=== PATIENT | female | born 1935 | race Caucasian/White ===

== ENCOUNTER 2016-08-11 21:12 | Inpatient (IN) | payer MEDICARE, BC ==
[2016-08-11 21:41] LABS: Hematocrit 36 % (35-47); Mean Corpuscular HGB Conc 33 g/dl (31-36); Mean Corpuscular Hemoglobin 30 pg (27-31); Mean Corpuscular Volume 90 fL (80-97); Mean Platelet Volume 7 um3 (7.4-10.4); Red Blood Count 4.01 10^6/ul (4.0-5.4); Red Cell Distribution Width 14 % (10.5-15); White Blood Count 6.9 10^3/ul (3.5-10.8)
[2016-08-11 21:58] LABS: Albumin 3.7 g/dL (3.2-5.2); BUN/Creatinine Ratio 23.8 (8-20); Calcium 8.6 mg/dL (8.6-10.3); EGFR African American 117.2 (>60); EGFR Non-African American 91.2 (>60); Globulin 2.6 g/dL (2-4); Magnesium 1.9 mg/dL (1.9-2.7); Potassium 3.8 mmol/L (3.5-5.0); Total Bilirubin 0.4 mg/dL (0.2-1.0); Total Protein 6.3 g/dL (6.4-8.9)
--- NOTE | 2016-08-11 22:00 | RAD ---
INDICATION: Chest pain COMPARISON: April 01, 2010 TECHNIQUE: PA and lateral dual-energy views were obtained. FINDINGS: Bones/Soft Tissues: There are no acute bony findings. Cardiomediastinal: The cardiomediastinal silhouette is normal. Lungs: There are no infiltrates. There is interstitial edema. Pleura: There are no pleural effusions. Other: None IMPRESSION: INTERSTITIAL EDEMA
[2016-08-11 22:11] LABS: Troponin I 0.63 ng/mL (<0.04)
--- NOTE | 2016-08-11 22:28 | ED ---
crystal Magallon Timothy, scribed for Grzegorz Bess MD on 08/11/16 at 2128 . HPI Chest Pain - HPI Summary HPI Summary: Maria Del Carmen Kuhn is a 80 yo female presenting to [facility] with intermittent chest pressure for the past few months, most recently at 2000 tonight. She presents to [facility] today because her Sx have not resolved spontaneously Her daughter is present in room. She states that she has had similar Sx in the past which resolve spontaneously. She was administered 2 NTG and ASA per EMS, which resolved her pressure. 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 Her MHx includes HTN, colorectal CA, chemotherapy, radiation therapy. - History of Current Complaint Time Seen by Provider: 08/11/16 21:13 Hx Obtained From: Patient Onset/Duration: Started Hours Ago, Still Present Time of Onset: 20:00 Timing: Constant Initial Severity: Moderate Current Severity: Moderate Pain Intensity: 0 Pain Scale Used: 0-10 Numeric Chest Pain Location: Diffuse Chest Pain Radiates: No Character: Pressure/Squeezing Alleviating Factor(s): NTG 123, OTC Meds - ASA Associated Signs and Symptoms: Positive: Chest Pain - pressure - Allergy/Home Medications Allergies/Adverse Reactions: Allergies Allergy/AdvReac Type Severity Reaction Status Date / Time Amoxicillin Allergy Unknown Verified 04/13/16 13:08 Reaction Details Ciprofloxacin [From Cipro] Allergy Unknown Verified 04/13/16 13:08 Reaction Details PMH/Surg Hx/FS Hx/Imm Hx Endocrine/Hematology History: Denies: Hx Diabetes, Hx Thyroid Disease Cardiovascular History: Reports: Hx Hypertension Denies: Hx Pacemaker/ICD Respiratory History: Denies: Hx Asthma, Hx Chronic Obstructive Pulmonary Disease (COPD) GI History: Denies: Hx Ulcer History: Denies: Hx Dialysis, Hx Renal Disease Sensory History: Denies: Hx Hearing Aid Psychiatric History: Denies: Hx Panic Disorder - Cancer History Cancer Type, Location and Year: colon ca - chemo/radiation Hx Chemotherapy: Yes - HX COLON CA Hx Radiation Therapy: Yes - Surgical History Surgery Procedure, Year, and Place: colon resection r/t ca,APPY Infectious Disease History: No Infectious Disease History: Denies: Hx Hepatitis, Hx Human Immunodeficiency Virus (HIV), History Other Infectious Disease, Traveled Outside the [place] in Last 30 Days - Family History Known Family History: Positive: Cardiac Disease, Other - breast CA Negative: Diabetes - Social History Alcohol Use: Rare Substance Use Type: Reports: None Smoking Status (MU): Never Smoked Tobacco Review of Systems Constitutional: Negative Eyes: Negative ENT: Negative Positive: Chest Pain - pressure Respiratory: Negative Gastrointestinal: Negative Genitourinary: Negative Musculoskeletal: Negative Skin: Negative Neurological: Negative Psychological: Normal All Other Systems Reviewed And Are Negative: Yes Physical Exam Triage Information Reviewed: Yes Vital Signs On Initial Exam: Initial Vitals Temp Pulse Resp BP Pulse Ox 98.3 F 67 18 167/87 95 08/11/16 21:18 08/11/16 21:18 08/11/16 21:18 08/11/16 21:18 08/11/16 21:18 Vital Signs Reviewed: Yes Appearance: Positive: Well-Appearing, No Pain Distress Skin: Positive: Warm Head/Face: Positive: Normal Head/Face Inspection Eyes: Positive: HECTOR ENT: Positive: Hearing grossly normal Neck: Positive: Supple Respiratory/Lung Sounds: Positive: Clear to Auscultation, Breath Sounds Present Cardiovascular: Positive: RRR Abdomen Description: Positive: Nontender, Soft Bowel Sounds: Positive: Present Musculoskeletal: Positive: Strength/ROM Intact Neurological: Positive: Alert, Oriented to Person Place, Time Psychiatric: Positive: Affect/Mood Appropriate Diagnostics - Vital Signs Vital Signs Temp Pulse Resp BP Pulse Ox 08/11/16 21:18 98.3 F 67 18 167/87 95 - Laboratory Lab Results: Lab Results 08/11/16 08/11/16 08/11/16 Range/Units 21:34 21:34 21:34 WBC 6.9 (3.5-10.8) 10^3/ul RBC 4.01 (4.0-5.4) 10^6/ul Hgb 12.0 (12.0-16.0) g/dl Hct 36 (35-47) % MCV 90 (80-97) fL MCH 30 (27-31) pg MCHC 33 (31-36) g/dl RDW 14 (10.5-15) % Plt Count 233 (150-450) 10^3/ul MPV 7 L (7.4-10.4) um3 Neut % (Auto) 62.3 (38-83) % Lymph % (Auto) 28.3 (25-47) % [place] % (Auto) 6.3 (1-9) % Eos % (Auto) 1.9 (0-6) % Baso % (Auto) 1.2 (0-2) % Absolute Neuts (auto) 4.3 (1.5-7.7) 10^3/ul Absolute Lymphs (auto) 1.9 (1.0-4.8) 10^3/ul Absolute Monos (auto) 0.4 (0-0.8) 10^3/ul Absolute Eos (auto) 0.1 (0-0.6) 10^3/ul Absolute Basos (auto) 0.1 (0-0.2) 10^3/ul Absolute Nucleated RBC 0 10^3/ul Nucleated RBC % 0 INR (Anticoag Therapy) 0.95 (0.89-1.11) Sodium 133 (133-145) mmol/L Potassium 3.8 (3.5-5.0) mmol/L Chloride 103 (101-111) mmol/L Carbon Dioxide 23 (22-32) mmol/L Anion Gap 7 (2-11) mmol/L BUN 15 (6-24) mg/dL Creatinine 0.63 (0.51-0.95) mg/dL Est GFR ( Amer) 117.2 (>60) Est GFR (Non-Af Amer) 91.2 (>60) BUN/Creatinine Ratio 23.8 H (8-20) Glucose 148 H (70-100) mg/dL Lactic Acid (0.5-2.0) mmol/L Calcium 8.6 (8.6-10.3) mg/dL Magnesium 1.9 (1.9-2.7) mg/dL Total Bilirubin 0.40 (0.2-1.0) mg/dL AST 22 (13-39) U/L ALT 13 (7-52) U/L Alkaline Phosphatase 78 (34-104) U/L Troponin I 0.63 H* (<0.04) ng/mL Total Protein 6.3 L (6.4-8.9) g/dL Albumin 3.7 (3.2-5.2) g/dL Globulin 2.6 (2-4) g/dL Albumin/Globulin Ratio 1.4 (1-3) 05/30/17 Range/Units 21:34 WBC (3.5-10.8) 10^3/ul RBC (4.0-5.4) 10^6/ul Hgb (12.0-16.0) g/dl Hct (35-47) % MCV (80-97) fL MCH (27-31) pg MCHC (31-36) g/dl RDW (10.5-15) % Plt Count (150-450) 10^3/ul MPV (7.4-10.4) um3 Neut % (Auto) (38-83) % Lymph % (Auto) (25-47) % [place] % (Auto) (1-9) % Eos % (Auto) (0-6) % Baso % (Auto) (0-2) % Absolute Neuts (auto) (1.5-7.7) 10^3/ul Absolute Lymphs (auto) (1.0-4.8) 10^3/ul Absolute Monos (auto) (0-0.8) 10^3/ul Absolute Eos (auto) (0-0.6) 10^3/ul Absolute Basos (auto) (0-0.2) 10^3/ul Absolute Nucleated RBC 10^3/ul Nucleated RBC % INR (Anticoag Therapy) (0.89-1.11) Sodium (133-145) mmol/L Potassium (3.5-5.0) mmol/L Chloride (101-111) mmol/L Carbon Dioxide (22-32) mmol/L Anion Gap (2-11) mmol/L BUN (6-24) mg/dL Creatinine (0.51-0.95) mg/dL Est GFR ( Amer) (>60) Est GFR (Non-Af Amer) (>60) BUN/Creatinine Ratio (8-20) Glucose (70-100) mg/dL Lactic Acid 1.6 (0.5-2.0) mmol/L Calcium (8.6-10.3) mg/dL Magnesium (1.9-2.7) mg/dL Total Bilirubin (0.2-1.0) mg/dL AST (13-39) U/L ALT (7-52) U/L Alkaline Phosphatase (34-104) U/L Troponin I (<0.04) ng/mL Total Protein (6.4-8.9) g/dL Albumin (3.2-5.2) g/dL Globulin (2-4) g/dL Albumin/Globulin Ratio (1-3) Result Diagrams: 08/11/16 21:34 08/11/16 21:34 Lab Statement: Any lab studies that have been ordered have been reviewed, and results considered in the medical decision making process. - Radiology CXR Xray Interpretation: Positive (See Comments) - IMPRESSION: INTERSTITIAL EDEMA Radiology Interpretation Completed By: Radiologist - EKG 2116 Cardiac Rate: NL - 64 BPM EKG Interpretation: NSR @ 64 BPM, nonspecific ST abnormalities Chest Pain Course/Dx - Course Assessment/Plan: Maria Del Carmen Kuhn is a 80 yo female [facility] pressure since 1999 tonight, similar to Sx she has had intermittently for the past few months except it has not resolved spontaneously. Her EKG suggests NSR with nonspecific ST abnormalities. Her CXR suggests interstitial edema. After clinical examination and review of her lab and imaging studies, as well as discussion with Dr. Slade, she will be admitted to [facility] for further obsrevation and treatment. - Diagnoses Provider Diagnoses: NSTEMI (non-ST elevated myocardial infarction) - Provider Notifications Discussed Care Of Patient With: Arya Berg - Accepted Pt for admission Time Discussed With Above Provider: 22:12 Instructed by Provider To: Admit As Inpatient - Critical Care Time Critical Care Time: 30-74 min Discharge - Discharge Plan Condition: Guarded Disposition: ADMITTED TO [facility] Discharge Disposition Comment: admission for further observation, evaluation, and treatment The documentation as recorded by the crystal uribe Timothy accurately reflects the service I personally performed and the decisions made by , Grzegorz Bess MD.
[2016-08-11] MEDS ORDERED: Heparin DRIP 25,000 UNITS(*) 25,000 UNITS/500 ML BAG IVPB SCH ×2 (22:30→23:30)
[2016-08-11] MEDS ORDERED: Heparin VIAL(*) 5000 UNITS/ML VIAL (FIVE THOUSAND) IV SCH (23:00)
[2016-08-11] MEDS ORDERED: Morphine INJ* 2 MG/ML 1 ML SYRINGE IV PRN (23:30)
[2016-08-11] MEDS ORDERED: LORazepam INJ* 2 MG/ML 1 ML VIAL IV PRN (23:30)
[2016-08-11] MEDS ORDERED: Acetaminophen TAB* 325 MG PO PRN (23:30)
[2016-08-11] MEDS ORDERED: Ondansetron INJ* 2 MG/ML VIAL IV PRN (23:30)
[2016-08-11] MEDS ORDERED: CMCS: Melatonin (NF) 3 MG TAB PO PRN (23:30)
[2016-08-11] MEDS ORDERED: traMADol TAB* 50 MG PO PRN (23:30)
[2016-08-11] MEDS ORDERED: NS 0.9% 1000 ML* 1,000 ML IV SCH (23:30)
[2016-08-11] MEDS ORDERED: Heparin VIAL(*) 5000 UNITS/ML VIAL (FIVE THOUSAND) IV PRN (23:48)
[2016-08-12] MEDS ORDERED: Nitroglycerin 2% OINT* 1 GM PAK TOPICAL ONE (00:40)
[2016-08-12 01:09] LABS: Troponin I 2.84 ng/mL (<0.04)
--- NOTE | 2016-08-12 01:31 | HP ---
H&P (Free Text) History and Physical: PCP: Harlan Turcios MD Date/Time of Evaluation: 08/11/2016 2725 CC: chest pain HPI: Mrs Kuhn is a 80YO female HX colon CA & HTN who has been having increased frequency of exertional chest pressure radiating down the L arm without SOB, N/V , sweats, palpitations, or light-headedness. She has seen her PCP and was arranged to perform a stress test a few days ago, but it was cancelled at the test 2nd uncontrolled HTN. Today she experienced the sudden onset of non- exertional chest pressure radiating dysesthesia into the L arm again without other associations. However, in the past this has always resolved quickly with rest, today it continued prompting her to call EMS and present for evaluation which revealed an NSTEMI troponin of 0.6 & ECG showing NSR rate 64 with non- diagnostic ST elevation in III only and ST depressions in V2-6, I, & II. She had taken an 81mg aspirin per her routine today and was given an additional 243mg via EMS. She has taken her metoprolol 25mg PO this evening. Heparin GTT initiated by Shannon Bess MD ED. Will admit to ICU for close monitoring, cardiology consult in AM. PMedHx colon CA s/p partial colectomy, chemo- & radioTX HTN Ambulatory Orders Metoprolol Tartrate 25 mg PO BID 12/22/13 Multiple Vitamin [Multivitamins] 1 cap PO DAILY 12/25/14 Aspirin [Aspirin Adult Low Dose 81 MG] 40 mg PO DAILY 04/08/15 Tramadol HCl [Ultram] 50 mg PO Q6HR PRN #15 tab 04/08/15 Magnesium 500 mg DAILY 08/12/16 Allergies Amoxicillin Allergy (Verified 04/13/16 13:08) Unknown Reaction Details Ciprofloxacin [From Cipro] Allergy (Verified 04/13/16 13:08) Unknown Reaction Details PSurgHx partial colectomy for colon CA SocHx: no tobacco, alcohol, or recreational drugs; originally from [place]; lives alone; avid swimmer, formerly competed in [employer]; increased stress 2nd her brother, sister, [id number], & [id number] all passing in the last 6months; full code status FamHx: Brother passed of CAD & Sister passed of suspected CVA recently. ROS: as above, otherwise reviewed and all were negative Constitutional: NAD, normally developed, well-nourished elderly white female vitals: Vital Signs Temp 36.6 C 08/12/16 00:06 Pulse 61 08/12/16 00:30 Resp 17 08/12/16 00:30 BP 99/86 08/12/16 00:30 Pulse Ox 95 08/12/16 00:30 Intake & Output 08/11/16 08/11/16 08/12/16 11:59 23:59 11:59 Weight 60.781 kg 60.9 kg HEENM: atraumatic; sclera/conjunctiva: non-icteric/clear; hearing: clinically intact; oropharynx: clear, mucosa moist Neck: soft tissue: non-tender; thyroid: normal Pulmonary: clear to auscultation bilaterally, good aeration, no accessory muscle use CV: RR/RR, normal S1S2, no carotid bruit, no jugular venous distention, 2+ B DP/ PT, no edema Abdominal: soft, non-distended, non-tender, no rebound/guarding/rigidity, normoactive bowel sounds, no hepatosplenomegaly or masses, no costovertebral angle tenderness Musculoskeletal: general: grossly intact; gait: stable Integumental: normal appearance and texture of exposed skin Psychiatric orientation: AA&O to PPS affect: calm mood: pleasant eye contact: good content: reliable responses: timely insight: good Testing: Lab Results 08/11/16 08/11/16 08/11/16 Range/Units 21:34 21:34 21:34 WBC 6.9 (3.5-10.8) 10^3/ul RBC 4.01 (4.0-5.4) 10^6/ul Hgb 12.0 (12.0-16.0) g/dl Hct 36 (35-47) % MCV 90 (80-97) fL MCH 30 (27-31) pg MCHC 33 (31-36) g/dl RDW 14 (10.5-15) % Plt Count 233 (150-450) 10^3/ul MPV 7 L (7.4-10.4) um3 Neut % (Auto) 62.3 (38-83) % Lymph % (Auto) 28.3 (25-47) % [place] % (Auto) 6.3 (1-9) % Eos % (Auto) 1.9 (0-6) % Baso % (Auto) 1.2 (0-2) % Absolute Neuts (auto) 4.3 (1.5-7.7) 10^3/ul Absolute Lymphs (auto) 1.9 (1.0-4.8) 10^3/ul Absolute Monos (auto) 0.4 (0-0.8) 10^3/ul Absolute Eos (auto) 0.1 (0-0.6) 10^3/ul Absolute Basos (auto) 0.1 (0-0.2) 10^3/ul Absolute Nucleated RBC 0 10^3/ul Nucleated RBC % 0 INR (Anticoag Therapy) 0.95 (0.89-1.11) APTT (26.0-36.3) seconds Sodium 133 (133-145) mmol/L Potassium 3.8 (3.5-5.0) mmol/L Chloride 103 (101-111) mmol/L Carbon Dioxide 23 (22-32) mmol/L Anion Gap 7 (2-11) mmol/L BUN 15 (6-24) mg/dL Creatinine 0.63 (0.51-0.95) mg/dL Est GFR ( Amer) 117.2 (>60) Est GFR (Non-Af Amer) 91.2 (>60) BUN/Creatinine Ratio 23.8 H (8-20) Glucose 148 H (70-100) mg/dL Lactic Acid (0.5-2.0) mmol/L Calcium 8.6 (8.6-10.3) mg/dL Magnesium 1.9 (1.9-2.7) mg/dL Total Bilirubin 0.40 (0.2-1.0) mg/dL AST 22 (13-39) U/L ALT 13 (7-52) U/L Alkaline Phosphatase 78 (34-104) U/L Troponin I 0.63 H* (<0.04) ng/mL Total Protein 6.3 L (6.4-8.9) g/dL Albumin 3.7 (3.2-5.2) g/dL Globulin 2.6 (2-4) g/dL Albumin/Globulin Ratio 1.4 (1-3) 08/11/16 08/12/16 08/12/16 Range/Units 21:34 00:26 00:26 WBC (3.5-10.8) 10^3/ul RBC (4.0-5.4) 10^6/ul Hgb (12.0-16.0) g/dl Hct (35-47) % MCV (80-97) fL MCH (27-31) pg MCHC (31-36) g/dl RDW (10.5-15) % Plt Count (150-450) 10^3/ul MPV (7.4-10.4) um3 Neut % (Auto) (38-83) % Lymph % (Auto) (25-47) % [place] % (Auto) (1-9) % Eos % (Auto) (0-6) % Baso % (Auto) (0-2) % Absolute Neuts (auto) (1.5-7.7) 10^3/ul Absolute Lymphs (auto) (1.0-4.8) 10^3/ul Absolute Monos (auto) (0-0.8) 10^3/ul Absolute Eos (auto) (0-0.6) 10^3/ul Absolute Basos (auto) (0-0.2) 10^3/ul Absolute Nucleated RBC 10^3/ul Nucleated RBC % INR (Anticoag Therapy) (0.89-1.11) APTT > 212.0 H* (26.0-36.3) seconds Sodium (133-145) mmol/L Potassium (3.5-5.0) mmol/L Chloride (101-111) mmol/L Carbon Dioxide (22-32) mmol/L Anion Gap (2-11) mmol/L BUN 14 (6-24) mg/dL Creatinine (0.51-0.95) mg/dL Est GFR ( Amer) (>60) Est GFR (Non-Af Amer) (>60) BUN/Creatinine Ratio (8-20) Glucose (70-100) mg/dL Lactic Acid 1.6 (0.5-2.0) mmol/L Calcium (8.6-10.3) mg/dL Magnesium (1.9-2.7) mg/dL Total Bilirubin (0.2-1.0) mg/dL AST (13-39) U/L ALT (7-52) U/L Alkaline Phosphatase (34-104) U/L Troponin I 2.84 H* (<0.04) ng/mL Total Protein (6.4-8.9) g/dL Albumin (3.2-5.2) g/dL Globulin (2-4) g/dL Albumin/Globulin Ratio (1-3) ECG, personally reviewed: NSR rate 64 with non-diagnostic ST elevation in III only and ST depressions in V2-6, I, & II CXR, personally reviewed: IMPRESSION: INTERSTITIAL EDEMA Impression: 80F presenting with NSTEMI DIAGNOSIS & PLAN Primary NSTEMI : aspirin given by ECS : metoprol IR (took evening 25mg dose) : heparin GTT : 1/2" nitropaste : supplemental oxygen : ICU monitoring : telemetry : trend troponin : cardiology consult in AM : supportive care Secondary HTN : review medications once reconciled, monitor HX colon CA : no current evidence of disease Admission Rational: inpatient ICU for NSTEMI in patient at risk of sudden cardiac ; inappropriate for outpatient setting DVTp: heparin GTT Code Status: full HCP: son, Bolivar
[2016-08-12] MEDS ORDERED: Omeprazole CAP* 20 MG PO SCH (06:00)
[2016-08-12] MEDS ORDERED: Nitro Patch/OINT Remove PATCH OFF ONE (07:00)
[2016-08-12] MEDS ORDERED: traMADol TAB* 50 MG PO PRN (07:02)
[2016-08-12] MEDS ORDERED: Metoprolol Tartrate IV* 1 MG/ML 5 ML VIAL ONE (08:40)
[2016-08-12] MEDS ORDERED: nitroGLYCERIN DRIP* 250 ML ONE ×2 (08:41→10:14)
[2016-08-12] MEDS ORDERED: Metoprolol Tartrate IV* 1 MG/ML 5 ML VIAL IV ONE (08:43)
[2016-08-12] MEDS ORDERED: nitroGLYCERIN DRIP* 25,000 MCG in PREMIX* 0 ML IV SCH (08:44)
--- NOTE | 2016-08-12 08:53 | PN ---
Subjective Date of Service: 08/12/16 Interval History: This is a 80 yo female with HTN and h/o colon CA who presented with c/o CP. She was admitted to ICU with evidence of NSTEMI. Patient has been CP overnight. She denies SOB, abd pain, n/v. She states that she otherwise feels well. Patient has been evaluated by Dr Alarcon this am with pending evaluation by Dr Ma for cardiac catheterization. Objective Active Medications: Acetaminophen (Tylenol Tab*) 650 mg PO Q6H PRN PRN Reason: FEVER/PAIN Aspirin (Aspirin Ec Low Dose*) 81 mg PO DAILY RONNELL Docusate Sodium (Colace Cap*) 200 mg PO BID RONNELL Heparin Sodium (Porcine) (Heparin Vial(*)) 0 units IV .BOLUSES PRN PRN Reason: HEPARIN DRIP BOLUSES Heparin Sodium/Dextrose (Heparin Drip 25,000 Units(*)) 25,000 units in 500 mls @ 0 mls/hr IVPB .(INITIAL RATE) RONNELL; Per Protocol PRN Reason: Protocol Nitroglycerin/Dextrose 25,000 (mcg/ IV Solution) 250 mls @ 3 mls/hr IV .( Initial Rate) RONNELL PRN Reason: 5 MCG/MIN Lisinopril (Prinivil Tab*) 5 mg PO DAILY RONNELL Lorazepam (Ativan Inj*) 0.5 mg IV BEDTIME PRN PRN Reason: SLEEP Melatonin (Melatonin (Nf)) 3 mg PO BEDTIME PRN; Protocol PRN Reason: Sleep Metoprolol Tartrate (Lopressor Tab*) 25 mg PO BID [facility] Metoprolol Tartrate (Lopressor Iv*) 5 mg IV ED ONCE ONE Stop: 08/12/16 08:44 Morphine Sulfate (Morphine Inj (Syringe)*) 2 mg IV Q4H PRN PRN Reason: PAIN - MILD Omeprazole (Prilosec Cap*) 20 mg PO DAILY@0600 [facility] Last Admin: 08/12/16 06:11 Dose: 20 mg Ondansetron HCl (Zofran Inj*) 4 mg IV Q6H PRN PRN Reason: NAUSEA Tramadol HCl (Ultram*) 50 mg PO Q6HR PRN PRN Reason: PAIN Vital Signs: Temp Pulse Resp BP Pulse Ox 97.2 F 65 16 164/80 93 08/12/16 07:25 08/12/16 07:00 08/12/16 07:00 08/12/16 07:00 08/12/16 07:00 Oxygen Devices in Use Now: Nasal Cannula Appearance: Well appearing elderly female who is in NAD and accompanied by her daughter. Neck: NL Appearance and Movements; NL JVP Respiratory: Symmetrical Chest Expansion and Respiratory Effort, Clear to Auscultation Cardiovascular: NL Sounds; No Murmurs; No JVD, RRR Abdominal: NL Sounds; No Tenderness; No Distention Extremities: No Edema Skin: No Rash or Ulcers Neurological: Alert and Oriented x 3 Result Diagrams: 08/11/16 21:34 08/12/16 00:26 Additional Lab and Data: Laboratory Tests 08/11/16 08/12/16 08/12/16 21:34 00:26 06:45 Troponin I 0.63 H* 2.84 H* 6.23 H* Microbiology and Other Data: Microbiology 08/12/16 01:00 Nasal Screen MRSA (PCR)(RENETTA) - Final Nasal Mrsa Negative Diagnostic Imaging: CXR - mild interstitial edema EKG - sinus, ST seg depression in septolateral leads, improving with serial EKGs Assess/Plan/Problems-Billing Assessment: This is a 80 yo female with HTN and h/o colon CA who presented with c/o CP, admitted with NSTEMI - Patient Problems (1) NSTEMI (non-ST elevated myocardial infarction) Comment: Patient is now asymptomatic Troponin still rising, but ST depression appears to be resolving on serial EKGs Appreciate cardiology consult Pending cardiac catheterization Cont heparin drip, ASA, metoprolol, statin, add lisinopril (2) HTN (hypertension) Comment: Poorly controlled Cont metoprolol Add lisinopril IV Lopressor and nitro drip per cardiology (3) H/O malignant neoplasm of colon (4) Full code status (5) DVT prophylaxis Comment: Heparin gtt Status and Disposition: Inpatient. Pending cardiac catheterization. Requires continued ICU care
[2016-08-12] MEDS ORDERED: Potassium Chlor TAB* 10 MEQ TAB.ER PO ONE (08:56)
[2016-08-12] MEDS ORDERED: Docusate CAP* 100 MG PO SCH (09:00)
[2016-08-12] MEDS ORDERED: Aspirin EC Low Dose* 81 MG TAB.EC PO SCH ×2 (09:00)
[2016-08-12] MEDS ORDERED: Metoprolol Tartrate TAB* 25 MG PO SCH ×2 (09:00→12:00)
[2016-08-12] MEDS ORDERED: Lisinopril TAB* 5 MG PO SCH (09:00)
[2016-08-12] MEDS ORDERED: Atorvastatin* 40 MG TAB PO SCH (09:00)
[2016-08-12] MEDS ORDERED: Atorvastatin* 80 MG TAB PO SCH (09:39)
[2016-08-12] MEDS ORDERED: NS 0.9% 1000 ML* 1,000 ML IV SCH ×2 (09:45→11:30)
[2016-08-12] MEDS ORDERED: Heparin(*) 1000 UNIT/ML 10 ML VIAL CATH LAB IV ONE (10:13)
[2016-08-12] MEDS ORDERED: Midazolam* 1 MG/ML 5 ML VIAL (5 MG) ONE (10:13)
[2016-08-12] MEDS ORDERED: fentaNYL* 50 MCG/ML 2 ML VIAL (100 MCG VIAL) ONE (10:13)
[2016-08-12] MEDS ORDERED: VERAPAMIL 2.5 MG/ML 4 ML VIAL ONE (10:14)
[2016-08-12] MEDS ORDERED: Iohexol 350 (CONTRAST) 200 ML MDV IV ONE (10:14)
[2016-08-12] MEDS ORDERED: Heparin 2 UNITS/ML IVPREMIX* 0 ML IV ONE (10:14)
[2016-08-12] MEDS ORDERED: Lidocaine 1% INJ* 10 MG/ML 30 ML SDV ONE (10:14)
[2016-08-12] MEDS ORDERED: Heparin 2 UNITS/ML IVPREMIX* 2,000 ML IV ONE (11:03)
--- NOTE | 2016-08-12 11:47 | CONS ---
CC: Dr. Turcios, hospitalist CARDIOLOGY CONSULTATION and Transfer summary DATE OF CONSULT: 08/12/16 REASON FOR CONSULTATION: Anginal chest pain, elevated troponins. HISTORY OF PRESENT ILLNESS: Mrs. Kuhn is a 80-year-old woman who is very active and swims daily, who has had a year long history of chest pain that comes and goes and clears with rest. It occurs on the left side of the chest, radiates to the left arm. She had been sent for a stress test, but because her blood pressure was elevated, the stress test was not performed on 07/28/16. Yesterday, the patient swam in the morning, felt well until afterwards, and then developed chest pain that did not clear with rest, so she presented to the emergency room. She had been treated with heparin drip in addition to oral antihypertensives and antianginal medications, but continues to have some discomfort in the low chest and epigastric region. She says now she cannot tell if she is hungry or it is her angina. She no longer has the left arm pain. She denies any diaphoresis, nausea, dyspnea or palpitations. PAST MEDICAL HISTORY: The patient has a past medical history of hypertension, colon cancer, status post partial colectomy, radiation therapy, and chemotherapy in the . CURRENT INPATIENT MEDICATIONS: Includes: 1. Aspirin 81 mg a day. 2. Colace. 3. Heparin drip. 4. Lisinopril 5 mg a day. 5. Ativan p.r.n. 6. Melatonin p.r.n. 7. Lopressor 25 mg b.i.d. 8. Morphine p.r.n. 9. Prilosec 20 mg a day. 10. Ondansetron p.r.n. 11. Ultram p.r.n. ALLERGIES: Include AMOXICILLIN and CIPROFLOXACIN. SOCIAL HISTORY: The patient is a nonsmoker. No history of alcohol use or abuse. She is , originally from [facility], and as mentioned, very active, swimming daily. FAMILY HISTORY: Strongly positive for atherosclerotic heart disease. Her mother of heart disease. She had a sister who had stents and at age 82, and a brother who had stents. He at age 75 and also had a history of colon cancer. REVIEW OF SYSTEMS: Negative for recent fevers, chills, or sweats. Positive for the uncontrolled hypertension as mentioned. She has occasional bowel incontinence due to her partial colectomy. No urinary problems. No orthopnea or PND. All other review of systems was unremarkable. PHYSICAL EXAMINATION: General Appearance: Petite, fatigued-appearing elderly woman, lying flat with one pillow, in no acute distress. Vitals: The patient is 5 feet, weighs 133 pounds, with a BMI of 26. Blood pressure at the time of my exam was 164/80, pulse was 72, temperature 97.2, respiratory rate 16, and oxygen saturation on room air is 93%. HEENT: Pupils are equal and round. Mucous membranes are moist. Neck: Without appreciable increase in JVP. Good carotid pulses and audible bruits. Lungs: Breath sounds clear with good effort. No wheezes, rales, or rhonchi. Coronary: S1 and S2, regular. Free of murmurs or rubs. Abdomen: Flat, active bowel sounds. Soft, nontender. No hepatosplenomegaly appreciated. She has strong symmetrical radial pulses. Strong symmetrical femoral pulses, without bruits, and the lower extremities are free of edema and warm, with good distal pulses. Psychologically, pleasant and cooperative. Neurologically, awake, alert, and oriented to person, place, and time. Cranial nerves II through XII grossly intact on bed exam. Speech is articulate. Comprehension is good. She follows commands well and appears quite nimble in bed. Gait not checked. Skin: Warm, dry, and no cyanosis or rashes. DIAGNOSTIC STUDIES/LAB DATA: Sodium 133, potassium 3.8, glucose 148, BUN 15, creatinine 0.63. Troponin #1 is 0.63, troponin #2 is 2.84, troponin #3 is 6.23. She has a lipid panel from 05/01/15 showing total cholesterol 186, LDL cholesterol 89, HDL cholesterol 59, and triglycerides 189. From 07/27/16, her vitamin B12 was low at 118. Carcinoembryonic antigen was mildly elevated at 6.2. INR was 121 on heparin drip. White count 6.9, hemoglobin 12, hematocrit 36, platelets 233. Magnesium 1.9 and ALT is 13. Chest x-ray on arrival showed some interstitial edema. Out patient ECHO two weeks ago showed normal left ventricular wall motion and systolic function. ECG on arrival, 08/11/16, at 2100 showed normal sinus rhythm, 64 beats a minute , with [address] elevation in lead III, ST depression in lead II, aVF, and [address] depression across the precordial leads V2 through V5. I and aVL also have ST depression. Repeat ECG this morning at 6:18 is improved, but she still has ST elevation leads III, aVF, inverted T- waves and mild ST depression across the precordial leads. When this is compared with her baseline ECG of 09/27, the ST elevation on lead III is old, but the precordial changes are new. IMPRESSION: In summary, Maria Del Carmen Kuhn is a 80-year-old woman with anginal pain, new EKG changes, and troponins that are elevating. She has atherosclerotic risk of hypertension, a family history that is strong for coronary artery disease, and a year ago she had mild elevation in triglycerides and she has had hyperglycemia going back as far as 2013. I feel the patient should proceed to cardiac catheterization and the risks and benefits were discussed with the patient and her daughter and they are amenable. In addition we will be more aggressive with medical management as she is having ongoing pain. I am going to increase her beta- gerald, start a nitroglycerin drip, start her on a statin . I will replete her potassium. Dr. Ma, the button decorating machine operator, has been contacted and I will defer on Plavix versus Brilinta at this time. Additional recommendations will be made pending response to more aggressive medical management in addition to the results of her cardiac catheterization. With her elevated CEA level and history of colon cancer, cancer could also be a prothrombotic factor as well. ADDENDUM: Cardiac catheterization revealed critical left main disease and severe stenosis of the RCA. Bypass surgery is recommended and the patient has been accepted in transfer to [facility] (Dr. Antonio Fuchs). The patient was hemodynamically stable during the catheterization and she is chest pain free on her current medical regimen. Medications on discharge are the list above and atorvastatin 80 mg and NTG gtt 15 mcg/minute. [id number]/[facility] #: [id number] [facility]
[2016-08-12 12:09] VITALS: BP 139/60
--- NOTE | 2016-08-12 13:33 | ECHO ---
Patient: ADELAIDE COX V [facility] Rec#: [id number] : 1935 Date: 08/12/2016 Age: 80y Height: 152.4 cm / 60.0 in Weight: 60.33 kg / 133.0 lbs Sex: F BSA: 1.57 Room#: [id number] Admit Date#: 08/12/2016 Type: Inpatient Referring: Ingrid Alarcon MD Reading: Ingrid Alarcon MD Residential Energy Auditor: Ledy Terrell [facility] Transthoracic Echocardiogram Indication: CP //Non Q wave NE BP: 164/80 HR: 55 Rhythm: Bradycardia Findings History: Colon cancer in the past,with chemo and radiation,HTN. Technical Comments: The study quality is fair. Completed at 1244. Left Ventricle: The left ventricular chamber size is normal. There is a focal wall motion abnormality present.[place] and antrior wall severe hypokinesis and akinesis. There is moderate to severely decreased left ventricular systolic function. The estimated ejection fraction is 30-35%. Abnormal left ventricular diastolic function is observed. Left Atrium: The left atrial chamber size is normal. Right Ventricle: The right ventricular cavity size is normal. The right ventricular global systolic function is low normal. Right Atrium: The right atrial cavity size is normal. Aortic Valve: The aortic valve is trileaflet. There is no evidence of aortic valve thickening. There is no evidence of aortic regurgitation. There is no evidence of aortic stenosis. Mitral Valve: The mitral valve leaflets are mildly thickened. There is trace to mild mitral regurgitation. There is no evidence of mitral stenosis. Tricuspid Valve: The tricuspid valve leaflets are normal. There is trace tricuspid regurgitation. Unable to estimate the right ventricular systolic pressure. There is no tricuspid stenosis. Pulmonic Valve: The pulmonic valve structure is not well visualized. Pericardium: The pericardium appears normal. Aorta: There is no dilatation of the ascending aorta. There is no dilatation of the aortic arch. There is no dilation of the aortic root. Venous: The inferior vena cava appears normal in size. There is a greater than 50% respiratory change in the inferior vena cava dimension. Conclusions [place] and antrior wall severe hypokinesis and akinesis. The estimated ejection fraction is 30-35%. Abnormal left ventricular diastolic function is observed. The right ventricular global systolic function is in the low range of normal. There is trace to mild mitral regurgitation. There is trace tricuspid regurgitation. Compared with prior echo of 07/28/16, the wall motion abnormalities and depressed ejection fraction are newly described. Measurements Name Value Normal Range RVIDd (AP) 2D 2.6 cm (0.9 - 2.6) RVDdMajor (2D) 3.3 cm (2.2 - 4.4) RAd ISD 4CH 4 cm (3.4 - 4.9) RA (A4C)W 3.4 cm (2.9 - 4.6) IVSd (2D) 0.7 cm (0.6 - 1) LVPWd (2D) 0.8 cm (0.6 - 1) LVIDd (2D) 3.6 cm (3.6 - 5.4) LVIDs (2D) 3.1 cm - LV FS (2D) 14 % (25 - 45) Aortic Annulus 2.2 cm (1.4 - 2.6) Ao root diameter (2D) 3.3 cm (2.1 - 3.5) Ascending Ao 3.4 cm (2.1 - 3.4) Aortic arch 1.8 cm (1.8 - 3.4) Descending Ao 0.5 cm - LA dimension (AP) 2D 2.8 cm (2.3 - 3.8) LAd ISD 4CH 6.2 cm (2.9 - 5.3) LA ISD 4CH W 4.3 cm (2.5 - 4.5) Name Value Normal Range LA ESV SP 4CH (A/L) 67 ml - LA ESV SP 2CH (A/L) 54 ml - LA ESV BP (A/L) 61 ml - LA ESV BP (A/L) index 39.08 ml/m2 - LA ESV SP 4CH (MOD) 65 ml - LA ESV SP 2CH (MOD) 51 ml - Name Value Normal Range MV E-wave Vmax 0.9 m/sec - MV deceleration time 269 msec - MV A-wave Vmax 1.3 m/sec - MV E:A ratio 0.66 ratio - LV septal e' Vmax 0.06 m/sec - LV lateral e' Vmax 0.08 m/sec - LV E:e' septal ratio 15 ratio - LV E:e' lateral ratio 11.25 ratio - Name Value Normal Range AV Vmax 1.6 m/sec - AV VTI 39.1 cm - AV peak gradient 5.88 mmHg - AV mean gradient 4.38 mmHg - LVOT Vmax 1 m/sec - LVOT VTI 25.6 cm - LVOT peak gradient 3.91 mmHg - LVOT mean gradient 1.84 mmHg - Name Value Normal Range TR Vmax 2.4 m/sec - TR peak gradient 23 mmHg - RAP 3 mmHg - RVSP 26 mmHg - IVC diameter 1.5 cm -
--- NOTE | 2016-08-12 23:18 | TRS ---
TRANSFER SUMMARY: DATE OF ADMISSION: 08/11/16 DATE OF TRANSFER: 08/12/16 FACILITY TO BE TRANSFERRED TO: [facility]. ACCEPTING PHYSICIAN: Dr. Fuchs. DISCHARGING PROVIDER: MADISON Douglas SUPERVISING PHYSICIAN: Ephraim Griffiths MD * (DICTATED BY MADISON DOUGLAS) CONSULTING INSURANCE INSTRUCTOR: Ingrid Alarcon MD COLLAR RUNNER: Lorrie Ma MD PRIMARY TRANSFER DIAGNOSES: 1. Non-ST elevation myocardial infarction with severe left main disease and right coronary stenosis, requiring coronary artery bypass graft procedure. 2. Hypertension - currently controlled with nitroglycerin drip, oral metoprolol , and lisinopril. SECONDARY DISCHARGE DIAGNOSIS: Remote history of colon cancer. TRANSFER MEDICATIONS: 1. Aspirin 81 mg p.o. daily. 2. Lipitor 80 mg p.o. daily. 3. Docusate 200 mg p.o. twice daily. 4. Heparin drip, currently at 800 units per hour. 5. Lisinopril 5 mg p.o. daily. 6. Melatonin 3 mg p.o. at bedtime. 7. Metoprolol tartrate 25 mg p.o. q.8 hours. 8. Morphine 2 mg IV q.1 hour as needed for chest pain. 9. Normal saline at 100 mL per hour. 10. Nitro drip, currently at 15 mcg per minute. 11. Omeprazole 20 mg p.o. daily. 12. Zofran 4 mg IV q.6 hours as needed for nausea. 13. Tramadol 50 mg p.o. q.6 hours as needed for pain. HOSPITAL IMAGIN. Chest x-ray shows some mild interstitial edema. 2. EKG shows sinus rhythm with ST-segment depressions in precordial leads, which appear new compared to old EKG, and serial EKG's ST depressions appear improving. 3. Cardiac catheterization demonstrates severe left main disease and right coronary stenosis. HOSPITAL COURSE: This is a 80-year-old female with a remote history of colon cancer and hypertension, who presented to the emergency department with complaints of chest pain. The patient has had symptoms of exertional chest pain for nearly a year and exercises daily. Her chest pain always resolves at rest. She was scheduled for a stress test by her primary care provider, but her blood pressure was uncontrolled at the time of stress testing and test was not completed. Yesterday, the patient exercised as usual participating in swimming and physical therapy. She did not experience chest pain during activity, but following activity, developed chest pain that did not resolve with rest and she subsequently presented to the emergency department. Her initial troponin was 0.63, which flako as high as 6.23 on serial monitoring, and her initial EKG demonstrated sinus rhythm, but new ST depressions in precordial leads. The patient was subsequently admitted to the ICU for a non-ST elevation AR and started on a heparin drip. She remained chest pain free overnight, but was complaining of some epigastric discomfort, but thought this was mostly due to being hungry. Serial EKG demonstrates partial resolution of her ST depression, but the patient remained hypertensive. She was started on a nitroglycerin drip as well as additional oral metoprolol and lisinopril with good effect. The patient underwent cardiac catheterization with Dr. Lorrie Ma, who discovered severe left main disease as well as right coronary stenosis and for this reason, recommended transfer for coronary artery bypass grafting at [facility]. DISPOSITION AND FOLLOWUP PLAN: The patient is being discharged to [facility] with Dr. Fuchs as accepting cardiac surgeon. The patient is chest pain free at the time of transfer and otherwise stable. The patient will likely undergo coronary artery bypass grafting either later this afternoon or tomorrow morning. She will require a close cardiology followup and primary care followup after discharge from [facility]. MADISON DOUGLAS CC: Primary care provider, Braxton Turcios MD* [id number]/[facility] #: [id number] DONNA
--- NOTE | 2016-08-14 23:26 | CATH ---
CC: Dr. Lorrie Ma; Dr. Turcios; Dr. Alarcon CATHETERIZATION REPORT: DATE OF PROCEDURE: 08/12/16 PRIMARY CARE PHYSICIAN: Dr. Turcios. OFFICE ADMINISTRATION: Dr. Alarcon. PROCEDURES: Right radial artery access, bilateral selective coronary cineangiography, left heart ca theterization. HISTORY: A 80-year-old woman with non-ST elevation infarct. PROCEDURE ACCESS: Right radial artery, sheath 6F slender. MEDICATIONS: 1. Subcu lidocaine. 2. IV Versed. 3. IV fentanyl. 4. Heparin 3000 units. 5. Verapamil 3 mg. 6. Nitroglycerin 300 mcg IA. DIAGNOSTIC CATHETERS: 6FL 3.5, 6FR 4, which was also used to measure LV pressure. LV gram was not p erformed. HEMODYNAMICS: Initial BP 154/90, LV 122/8-17, no aortic valve gradient on pullback. ANGIOGRAPHY: Injection of the right subclavian showed it to be tortuous. Left main: The left main is very short. It has a distal 80% to 90% stenosis involving the origin of the LAD and circumflex. LAD: The LAD is moderate, extends to the apex, it has JACOBY 2 flow. The LAD has a proximal 30% sten osis, supplies a small to moderate diagonal, ends past the apex. Circumflex: The circumflex is not dominant. It is moderate, has a moderate posterolateral and ends with a small distal posterolateral. The left coronary system is calcified. RCA: The RCA is moderate, small to moderate, dominant, has calcification, has a 50% stenosis at the acute margin followed by an eccentric 80% stenosis before the crux. The PDA is small. There is a faint conus collateral to the LAD. CONCLUSION: 1. Severe left main with 3-vessel disease. 2. Elevated LVEDP without aortic stenosis. 3. Successful right radial artery access. 4. The patient will be transferred for bypass grafting. [id number]/[facility] #: [id number]
== END 2016-08-12 14:30 | disposition short-term general hospital (02) | DRG 282 ==
LOC: ED 21:12 → ICU 22:44
PROVIDERS: ADMIT Hospitalist; ATTEND Specialist
PROC: 4A023N7 Measurement of Cardiac Sampling and Pressure, Left Heart, Percutaneous Approach (ICD-10-PCS; 2016-08-12)
PROC: 4A023N7 Measurement of Cardiac Sampling and Pressure, Left Heart, Percutaneous Approach (ICD-10-PCS; 2016-08-12)
PROC: B2111ZZ Fluoroscopy of Multiple Coronary Arteries using Low Osmolar Contrast (ICD-10-PCS; 2016-08-12)
PROC: B2111ZZ Fluoroscopy of Multiple Coronary Arteries using Low Osmolar Contrast (ICD-10-PCS; principal; 2016-08-12 10:15)
DX: I21.4 Non-ST elevation (NSTEMI) myocardial infarction (principal); E11.9 Type 2 diabetes mellitus without complications; I25.119 Atherosclerotic heart disease of native coronary artery with unspecified angina pectoris; I10 Essential (primary) hypertension; Z92.21 Personal history of antineoplastic chemotherapy; Z92.3 Personal history of irradiation; Z88.1 Allergy status to other antibiotic agents; Z85.038 Personal history of other malignant neoplasm of large intestine; Z80.3 Family history of malignant neoplasm of breast; Z82.49 Family history of ischemic heart disease and other diseases of the circulatory system; Z79.82 Long term (current) use of aspirin
CPT/HCPCS: 36415; 71020; 80053; 83605; 83735; 84484; 84520; 85025; 85610; 85730; 87641; 93005; 93306; 93458; A9270-GY; C1887; J1644; J2001; J2250; J3010

== ENCOUNTER 2022-03-09 07:23 | Observation (INO) ==
[2022-03-09] MEDS ORDERED: Famotidine IV 10 MG/ML 2 ml VIAL (20 mg) IV SLOW PU ONE (08:15)
[2022-03-09 09:15] LABS: ALT 29 U/L (7-52); Albumin 4.3 g/dL (3.2-5.2); Albumin/Globulin Ratio 1.4 (1-3); Alkaline Phosphatase 96 U/L (35-149); Blood Urea Nitrogen 13 mg/dL (6-24); C Reactive Protein 2.28 mg/L (<8.01); CO2 Carbon Dioxide 23 mmol/L (22-32); Calcium 8.7 mg/dL (8.6-10.3); Chloride 98 mmol/L (101-111); Glucose 156 mg/dL (70-100); Lipase 39 U/L (11.0-82.0); Sodium 137 mmol/L (135-145); Total Protein 7.3 g/dL (6.4-8.9)
[2022-03-09 09:20] LABS: Anion Gap 16 mmol/L (2-11)
[2022-03-09 09:22] LABS: ABS Lymphocytes 1.1 10^3/ul (1.0-4.8); ABS Monocytes 0.4 10^3/ul (0-0.8); Hematocrit 38 % (35-47); Hemoglobin 12.6 g/dL (12.0-16.0); Lymphocyte % 8.5 %; Mean Corpuscular HGB Conc 33 g/dL (31-36); Mean Corpuscular Hemoglobin 27 pg (27-31); Mean Corpuscular Volume 82 fL (80-97); Mean Platelet Volume 6.8 fL (7.4-10.4); Platelet Count 312 10^3/uL (150-450); Red Blood Count 4.63 10^6 /uL (3.70-4.87); Red Cell Distribution Width 15 % (10-15); White Blood Count 12.5 10^3/uL (3.5-10.8)
[2022-03-09] MEDS ORDERED: Iohexol 350 (CONTRAST) 500 ML MDV IV ONE (09:24)
[2022-03-09] MEDS ORDERED: Ondansetron 4 mg VIAL 2 MG/ML 2 ml VIAL IV ONE (10:15)
[2022-03-09] MEDS ORDERED: Lactated Ringers 1000 ml BAG 1,000 ML IV ONE (10:19)
[2022-03-09 11:30] LABS: Potassium Redraw 3.4 mmol/L (3.5-5.0)
[2022-03-09] MEDS ORDERED: Ondansetron 4 mg VIAL 2 MG/ML 2 ml VIAL IV PRN (11:56)
[2022-03-09] MEDS ORDERED: Lactated Ringers 1000 ml BAG 1,000 ML IV SCH (12:00)
[2022-03-09 12:41] LABS: Magnesium 1.1 mg/dL (1.9-2.7)
[2022-03-09] MEDS ORDERED: Magnesium Sulf 4 GM/100 ML IV 4,000 MG/100 ML BAG IVPB ONE (13:31)
[2022-03-09] MEDS: Potassium Chloride IV 40 MEQ in Lactated Ringers 1000 ml BAG 1,000 ML IVPB SCH (13:35)
[2022-03-09 13:47] LABS: Urine Appearance Clear; Urine Bilirubin Negative (Negative); Urine Color Yellow; Urine Glucose Negative (Negative); Urine Ketones 1+ (15mg/dL) (Negative)
[2022-03-09 13:48] LABS: Urine Blood Trace (Intact) (Negative); Urine Nitrite Negative (Negative); Urine Protein 2+ (100 mg/dL) (Negative); Urine Specific Gravity 1.015 (1.005-1.030); Urine Urobilinogen 0.2 (Negative) (Negative)
[2022-03-09 13:55] LABS: Urine Bacteria Absent (Absent); Urine Red Blood Cell Trace(0-2/hpf) (Absent); Urine Squamous Epithelial Cell Present (Absent); Urine White Blood Cell Trace(0-5/hpf) (Absent)
[2022-03-09] MEDS ORDERED: Morphine 2 MG/ML SYRINGE IV PRN (14:10)
[2022-03-09] MEDS: Heparin 5000 UNITS/ML 1 mL VIAL SUBCUT SCH ×2 (15:13→22:32)
[2022-03-09 15:40] LABS: INR 1.24 (0.88-1.18)
[2022-03-10] MEDS: Potassium Chloride IV 40 MEQ in Lactated Ringers 1000 ml BAG 1,000 ML IVPB SCH (03:22)
[2022-03-10] MEDS: Heparin 5000 UNITS/ML 1 mL VIAL SUBCUT SCH ×3 (05:39→21:26)
[2022-03-10 05:40] LABS: ABS Monocytes 0.7 10^3/ul (0-0.8); ABS Neutrophils 4.5 10^3/ul (1.5-7.7); Eosinophil % 0.1 %; Hematocrit 34 % (35-47); Hemoglobin 11.8 g/dL (12.0-16.0); Lymphocyte % 27.4 %; Mean Corpuscular HGB Conc 34 g/dL (31-36); Mean Corpuscular Hemoglobin 28 pg (27-31); Mean Corpuscular Volume 81 fL (80-97); Mean Platelet Volume 6.8 fL (7.4-10.4); Platelet Count 291 10^3/uL (150-450); Red Blood Count 4.26 10^6 /uL (3.70-4.87); Red Cell Distribution Width 15 % (10-15); White Blood Count 7.2 10^3/uL (3.5-10.8)
[2022-03-10 05:56] LABS: Potassium 3.7 mmol/L (3.5-5.0); eGFR CKD-EPI 85.9 (>60)
[2022-03-11] MEDS: Heparin 5000 UNITS/ML 1 mL VIAL SUBCUT SCH (06:09)
[2022-03-11] MEDS ORDERED: Aspirin EC 81 mg TAB.EC (enteric coated) PO SCH (09:00)
[2022-03-11 11:29] VITALS: BP 146/47
== END 2022-03-11 12:25 | disposition home or self-care (01) ==
LOC: ED 07:23 → EDHOLD 07:23 → SUATTDRO 11:56 → EDHOLD 16:08 → SSU 16:24
PROVIDERS: ADMIT Hospitalist; ATTEND Internal Medicine